=== PATIENT | male | born 1970 | race Asian ===

== ENCOUNTER 2016-11-12 09:56 | Emergency (ER) | payer MEDICAID, OTHER ==
[2016-11-12 10:20] VITALS: BP 146/91
--- NOTE | 2016-11-12 11:08 | UC ---
Throat Pain/Nasal [place] HPI - HPI Summary HPI Summary: TWO WEEKS OF COUGH CONGESTION NASAL PRESSURE SINCE RETURNING FROM [place] FOR [employer]. CONGESTION AND COUGH HAVE CONTINUED DESPITE [employer] REMEDIES. - History of Current Complaint Chief Complaint: UCRespiratory Stated Complaint: COUGH Time Seen by Provider: 11/12/16 10:55 Hx Obtained From: Patient Onset/Duration: Gradual Onset, Lasting Weeks, Still Present Severity: Moderate Cough: Nonproductive Associated Signs & Symptoms: Positive: Hoarseness, Sinus Discomfort, Nasal Discharge, Fever - Epiglottits Risk Factors Epiglottis Risk Factors: Negative - Allergies/Home Medications Allergies/Adverse Reactions: Allergies Allergy/AdvReac Type Severity Reaction Status Date / Time No Known Allergies Allergy Verified 06/25/14 15:47 Home Medications: Home Medications Amlodipine Besylate [Norvasc-] 5 mg PO DAILY 11/12/16 [History Confirmed ] PMH/Surg Hx/FS Hx/Imm Hx Previously Healthy: Yes Endocrine History Of: Denies: Diabetes, Thyroid Disease Cardiovascular History Of: Reports: Hypertension Denies: Cardiac Disorders Respiratory History Of: Denies: COPD, Asthma GI/ History Of: Reports: Kidney Stones Denies: Ulcer - Surgical History Surgical History: None - Family History Known Family History: Negative: Respiratory Disease - Social History Occupation: Employed Full-time Lives: With Family Alcohol Use: UNK Substance Use Type: None, Other Substance Use Comment - Amount & Last Used: UNK Smoking Status (MU): Never Smoked Tobacco Review of Systems Constitutional: Chills, Fatigue Skin: Negative Eyes: Negative ENT: Ear Ache, Nasal Discharge Respiratory: Cough Cardiovascular: Negative Gastrointestinal: Negative Genitourinary: Negative Motor: Negative Neurovascular: Negative Musculoskeletal: Negative Neurological: Negative Psychological: Negative All Other Systems Reviewed And Are Negative: Yes Physical Exam Triage Information Reviewed: Yes Appearance: Well-Appearing, No Pain Distress Vital Signs: Initial Vital Signs Temp 97.6 F 11/12/16 10:15 Pulse 103 11/12/16 10:15 Resp 18 11/12/16 10:15 BP 146/91 11/12/16 10:15 Pulse Ox 98 11/12/16 10:15 Vital Signs Reviewed: Yes Eye Exam: Normal ENT: Positive: Pharynx normal, Nasal congestion, TM bulging, TM dull Dental Exam: Normal Neck exam: Normal Neck: Positive: Supple, Nontender, No Lymphadenopathy Respiratory Exam: Normal Respiratory: Positive: Chest non-tender, Lungs clear, Normal breath sounds, No respiratory distress, No accessory muscle use Cardiovascular Exam: Normal Cardiovascular: Positive: RRR, No Murmur, Pulses Normal, Brisk Capillary Refill Abdominal Exam: Normal Musculoskeletal Exam: Normal Musculoskeletal: Positive: Strength Intact Neurological Exam: Normal Psychological Exam: Normal Psychological: Positive: Normal Response To Family Skin Exam: Normal Throat Pain/Nasal Course/Dx - Differential Dx/Diagnosis Differential Diagnosis/HQI/PQRI: Pharyngitis, Sinusitis, Tonsillitis, URI Provider Diagnoses: SINUSITIS Discharge - Discharge Plan Condition: Stable Disposition: HOME Prescriptions: Amoxicillin/Clavulanate TAB* [Augmentin TAB 875*] 875 mg PO BID #20 tab Benzonatate CAP* [Tessalon CAP*] 100 mg PO TID PRN #15 cap PRN Reason: Cough Patient Education Materials: Sinusitis (ED) Referrals: [facility]IAN REFERRAL [Outside] No Primary Care Phys,NOPCP [Primary Care Provider] -
== END 2016-11-12 11:11 | disposition home or self-care (01) ==
LOC: UCEAST 09:56
DX: J32.9 Chronic sinusitis, unspecified (principal); I10 Essential (primary) hypertension
CPT/HCPCS: 99212; G0463

== ENCOUNTER 2016-11-14 09:53 | Emergency (ER) | payer OTHER ==
[2016-11-14] MEDS ORDERED: Albuterol/Ipratropium NEB.SOL* Albuterol 2.5 MG/Ipratropium 0.5 MG 3 ML INH ONE (11:34)
[2016-11-14] MEDS ORDERED: Ondansetron INJ* 2 MG/ML VIAL IV ONE (11:34)
[2016-11-14 11:54] LABS: Hematocrit 51 % (42-52); Hemoglobin 17.2 g/dl (14.0-18.0); Mean Corpuscular HGB Conc 34 g/dl (31-36); Mean Corpuscular Hemoglobin 30 pg (27-31); Mean Corpuscular Volume 88 fL (80-94); Mean Platelet Volume 9 um3 (7.4-10.4); Red Blood Count 5.78 10^6/ul (4.0-5.4); Red Cell Distribution Width 13 % (10.5-15); White Blood Count 10.7 10^3/ul (3.5-10.8)
[2016-11-14 12:06] LABS: Albumin 4.7 g/dL (3.2-5.2); BUN/Creatinine Ratio 19.5 (8-20); C Reactive Protein 14.51 mg/L (< 5.00); EGFR African American 85.9 (>60); EGFR Non-African American 66.8 (>60); Globulin 3.6 g/dL (2-4); Potassium 2.8 mmol/L (3.5-5.0); Total Bilirubin 2.6 mg/dL (0.2-1.0); Total Protein 8.3 g/dL (6.4-8.9)
[2016-11-14] MEDS ORDERED: Potassium Chlor TAB* 20 MEQ TAB.ER PO ONE (12:19)
[2016-11-14] MEDS: NS 0.9% 1000 ML* 3,000 ML IV ONE ×3 (12:33→13:56)
--- NOTE | 2016-11-14 13:01 | RAD ---
HISTORY: Cough, shortness of breath, pneumonia COMPARISONS: None VIEWS: 2: Frontal dual-energy and lateral views of the chest. FINDINGS: CARDIOMEDIASTINAL SILHOUETTE: The cardiomediastinal silhouette is normal. HENOK: The henok are normal. PLEURA: The costophrenic angles are sharp. No pleural abnormalities are noted. LUNG PARENCHYMA: The lung volumes are low. The lungs are clear. ABDOMEN: The upper abdomen is clear. There is no subphrenic gas. BONES AND SOFT TISSUES: No bone or soft tissue abnormalities are noted. OTHER: None. IMPRESSION: LOW LUNG VOLUMES. NO ACTIVE CARDIOPULMONARY DISEASE.
[2016-11-14 15:05] VITALS: BP 123/89
--- NOTE | 2016-11-14 17:52 | ED ---
Francia Walker Matthew, scribed for Saman Keen MD on 11/14/16 at 1142 . Influenza-Like Illness - HPI Summary HPI Summary: A 46 y/o male presents to the ED with flu like symptoms since 2 weeks ago. Associated symptoms include nausea, productive cough - yellow, vomiting - 2x, decreased appetite, fatigue, injected sclera, mild sinus congestion, and abdominal discomfort. The patient denies fever, chills, body aches, diarrhea, and rashes. The patient has no pain with deep breaths. PMHx includes HTN. He was started on Augmentin without relief. He did not receive his flu shot this year. The patient is traveling from [place] and arrived in the [place] on 11/08[place]16. He states that his son his ill with a similar illness in [place]. The patient does not smoke. The patient does not speak [place] and had a family member translate for him. - History of Current Complaint Chief Complaint: EDFluSymptoms Time Seen by Provider: 11/14/16 11:02 Hx Obtained From: Patient, Family/[employer], [employer] Onset/Duration: Gradual Onset, Lasting Weeks, Still Present Severity: Moderate Associated Signs & Symptoms: Cough, Nasal Congestion, Vomiting - Allergy/Home Medications Allergies/Adverse Reactions: Allergies Allergy/AdvReac Type Severity Reaction Status Date / Time No Known Allergies Allergy Verified 06/25/14 15:47 PMH/Surg Hx/FS Hx/Imm Hx Endocrine/Hematology History: Denies: Hx Diabetes, Hx Thyroid Disease Cardiovascular History: Reports: Hx Hypertension Respiratory History: Denies: Hx Asthma, Hx Chronic Obstructive Pulmonary Disease (COPD) GI History: Denies: Hx Ulcer History: Reports: Hx Kidney Stones Infectious Disease History: No Infectious Disease History: Reports: Traveled Outside the [place] in Last 30 Days Denies: Hx Hepatitis, Hx Human Immunodeficiency Virus (HIV) - Family History Known Family History: Negative: Respiratory Disease - Social History Alcohol Use: UNK Substance Use Type: Reports: None, Other Substance Use Comment - Amount & Last Used: UNK Smoking Status (MU): Never Smoked Tobacco Review of Systems Positive: Fatigue. Negative: Fever, Chills Positive: Erythema ENT: Other - Sinus congestion Positive: Nasal Discharge Cardiovascular: Negative Positive: Cough - productive - yellow phlegm Positive: Abdominal Pain, Vomiting, Nausea. Negative: Diarrhea Genitourinary: Negative Musculoskeletal: Negative Skin: Negative Neurological: Negative Psychological: Normal All Other Systems Reviewed And Are Negative: Yes Physical Exam - Summary Physical Exam Summary: The patient is well-nourished in no acute distress and in no acute pain. The skin is warm and dry and skin color reflects adequate perfusion. HEENT: The head is normocephalic and atraumatic. The pupils are equal and reactive. The patient has injected sclera bilaterally. Nares reveal rhinorrhea. Mouth reveals moist mucous membranes and the throat is without erythema and exudate. The external ears are intact. The ear canals are patent and without drainage. The tympanic membranes are intact. No sinus tenderness with percussion. No adenopathy Neck is supple with full range of motion and non-tender. There are no carotid bruits. There is no neck vein distension. No nuchal rigidity noted. Respiratory: Chest is non-tender. The patient is wheezing when coughing. Cardiovascular: Heart is regular rate and rhythm. There is no murmur or rub auscultated. There is no peripheral edema and pulses are symmetrical and equal. Abdomen: The abdomen is soft and non-tender. There are normal bowel sounds heard in all four quadrants and there is no organomegaly palpated. Musculoskeletal: There is no back pain noted. Extremities are non-tender with full range of motion. There is 2+ capillary refill. There is no peripheral edema or calf tenderness elicited. Neurological: Patient is alert and oriented to person, place and time. The patient has symmetrical motor strength in all four extremities. Cranial nerves are grossly intact. Deep tendon reflexes are symmetrical and equal in all four extremities. Psychiatric: The patient has an appropriate affect and does not exhibit any anxiety or depression. Triage Information Reviewed: Yes Vital Signs On Initial Exam: Initial Vitals Temp Pulse Resp BP Pulse Ox 97.2 F 97 20 131/93 99 11/14/16 09:56 11/14/16 09:56 11/14/16 09:56 11/14/16 09:56 11/14/16 09:56 Vital Signs Reviewed: Yes Diagnostics - Vital Signs Vital Signs Temp Pulse Resp BP Pulse Ox 11/14/16 09:56 97.2 F 97 20 131/93 99 - Laboratory Lab Results: Lab Results 11/14/16 11/14/16 11/14/16 Range/Units 11:32 11:32 11:32 WBC 10.7 (3.5-10.8) 10^3/ul RBC 5.78 H (4.0-5.4) 10^6/ul Hgb 17.2 (14.0-18.0) g/dl Hct 51 (42-52) % MCV 88 (80-94) fL MCH 30 (27-31) pg MCHC 34 (31-36) g/dl RDW 13 (10.5-15) % Plt Count 355 (150-450) 10^3/ul MPV 9 (7.4-10.4) um3 Neut % (Auto) 53.1 (38-83) % Lymph % (Auto) 35.6 (25-47) % [place] % (Auto) 9.9 H (1-9) % Eos % (Auto) 0.4 (0-6) % Baso % (Auto) 1.0 (0-2) % Absolute Neuts (auto) 5.7 (1.5-7.7) 10^3/ul Absolute Lymphs (auto) 3.8 (1.0-4.8) 10^3/ul Absolute Monos (auto) 1.1 H (0-0.8) 10^3/ul Absolute Eos (auto) 0 (0-0.6) 10^3/ul Absolute Basos (auto) 0.1 (0-0.2) 10^3/ul Absolute Nucleated RBC 0.01 10^3/ul Nucleated RBC % 0.1 Sodium 135 (133-145) mmol/L Potassium 2.8 L (3.5-5.0) mmol/L Chloride 94 L (101-111) mmol/L Carbon Dioxide 32 (22-32) mmol/L Anion Gap 9 (2-11) mmol/L BUN 23 (6-24) mg/dL Creatinine 1.18 H (0.67-1.17) mg/dL Est GFR ( Amer) 85.9 (>60) Est GFR (Non-Af Amer) 66.8 (>60) BUN/Creatinine Ratio 19.5 (8-20) Glucose 107 H (70-100) mg/dL Lactic Acid (0.5-2.0) mmol/L Calcium 10.0 (8.6-10.3) mg/dL Total Bilirubin 2.60 H (0.2-1.0) mg/dL AST 30 (13-39) U/L ALT 61 H (7-52) U/L Alkaline Phosphatase 75 (34-104) U/L C-Reactive Protein 14.51 H (< 5.00) mg/L B-Natriuretic Peptide ( - 100) pg/mL Total Protein 8.3 (6.4-8.9) g/dL Albumin 4.7 (3.2-5.2) g/dL Globulin 3.6 (2-4) g/dL Albumin/Globulin Ratio 1.3 (1-3) HIV 1&2 Antibody Nonreactive (Nonreactive) Influenza A (Rapid) (Negative) Influenza B (Rapid) (Negative) 11/14/16 11/14/16 11/14/16 Range/Units 11:32 11:32 11:48 WBC (3.5-10.8) 10^3/ul RBC (4.0-5.4) 10^6/ul Hgb (14.0-18.0) g/dl Hct (42-52) % MCV (80-94) fL MCH (27-31) pg MCHC (31-36) g/dl RDW (10.5-15) % Plt Count (150-450) 10^3/ul MPV (7.4-10.4) um3 Neut % (Auto) (38-83) % Lymph % (Auto) (25-47) % [place] % (Auto) (1-9) % Eos % (Auto) (0-6) % Baso % (Auto) (0-2) % Absolute Neuts (auto) (1.5-7.7) 10^3/ul Absolute Lymphs (auto) (1.0-4.8) 10^3/ul Absolute Monos (auto) (0-0.8) 10^3/ul Absolute Eos (auto) (0-0.6) 10^3/ul Absolute Basos (auto) (0-0.2) 10^3/ul Absolute Nucleated RBC 10^3/ul Nucleated RBC % Sodium (133-145) mmol/L Potassium (3.5-5.0) mmol/L Chloride (101-111) mmol/L Carbon Dioxide (22-32) mmol/L Anion Gap (2-11) mmol/L BUN (6-24) mg/dL Creatinine (0.67-1.17) mg/dL Est GFR ( Amer) (>60) Est GFR (Non-Af Amer) (>60) BUN/Creatinine Ratio (8-20) Glucose (70-100) mg/dL Lactic Acid 1.5 (0.5-2.0) mmol/L Calcium (8.6-10.3) mg/dL Total Bilirubin (0.2-1.0) mg/dL AST (13-39) U/L ALT (7-52) U/L Alkaline Phosphatase (34-104) U/L C-Reactive Protein (< 5.00) mg/L B-Natriuretic Peptide 9 ( - 100) pg/mL Total Protein (6.4-8.9) g/dL Albumin (3.2-5.2) g/dL Globulin (2-4) g/dL Albumin/Globulin Ratio (1-3) HIV 1&2 Antibody (Nonreactive) Influenza A (Rapid) Negative (Negative) Influenza B (Rapid) Negative (Negative) Result Diagrams: 11/14/16 11:32 11/14/16 11:32 Lab Statement: Any lab studies that have been ordered have been reviewed, and results considered in the medical decision making process. - Radiology CXR Xray Interpretation: No Acute Changes - IMPRESSION: LOW LUNG VOLUMES. NO ACTIVE CARDIOPULMONARY DISEASE. Radiology Interpretation Completed By: Radiologist Re-Evaluation - Re-Evaluation First Eval Change: Improved Comment: Reassessed the patient and his lung are clear and he appears to being doing well in the ED. Flu Symptom Course/Dx - Course Assessment/Plan: A 46 y/o male presents to the ED with flu like symptoms since 2 weeks ago. Associated symptoms include nausea, productive cough - yellow, vomiting - 2x, decreased appetite, fatigue, injected sclera, mild sinus congestion, and abdominal discomfort. The patient denies fever, chills, body aches, diarrhea, and rashes. CXR shows no active cardiopulmonary disease. The patient did well in the ED. He was given DuoNeb, 3L of IV fluids, Zofran, and Klor. He will be discharged home and follow-up with his PCP. - Diagnoses Differential Diagnosis/HQI/PQRI: Positive: Bronchitis, Influenza, Pneumonia, Other - adverse drug reaction Provider Diagnoses: Acute bronchitis, Dehydration Discharge - Discharge Plan Condition: Stable Disposition: HOME Prescriptions: Albuterol HFA INHALER* [Ventolin HFA Inhaler*] 2 puff INH Q6H PRN #1 mdi PRN Reason: cough Azithromycin TAB* [Zithromax TAB (Z-TIM) 250 mg #6 tabs] 2 tab PO .TODAY, THEN 1 DAILY #1 tim predniSONE TAB* [Deltasone TAB*] 60 mg PO DAILY #15 tab Patient Education Materials: Albuterol (By mouth), Prednisone (By mouth), Azithromycin (By mouth) Referrals: No Primary Care Phys,NOPCP [Primary Care Provider] - Additional Instructions: Please follow-up with your primary care physician. Drink plenty of fluids and STOP the Augmentin and start taking the Z-Pack. The documentation as recorded by the Francia ovalle Matthew accurately reflects the service I personally performed and the decisions made by me, Saman Keen MD.
== END 2016-11-14 15:26 | disposition home or self-care (01) ==
LOC: ED 09:53
DX: J20.9 Acute bronchitis, unspecified (principal); E86.0 Dehydration; I10 Essential (primary) hypertension
CPT/HCPCS: 36415; 71020; 80053; 83605; 83880; 85025; 86140; 86703; 87502; 96360; 96361; 96374; 99282; A9270-GY; J2405